=== PATIENT | male | born 1935 | race Caucasian/White ===

== ENCOUNTER 2022-09-24 11:47 | Observation (INO) ==
[2022-09-24] MEDS ORDERED: PHARMACY CONSULT - VANCOMYCIN XX SCH (13:39)
[2022-09-24 14:19] LABS: BASOPHILS # (AUTO) 0.1 X10^3/uL (0.0-0.1); BASOPHILS % (AUTO) 0.7 % (0.2-1.0); EOSINOPHILS # (AUTO) 0.2 x10^3/uL (0.0-0.2); EOSINOPHILS % (AUTO) 2.2 % (0.9-2.9); HEMATOCRIT 37.1 % (42.0-54.0); HEMOGLOBIN 12.5 g/dL (13.5-18.0); LYMPHOCYTES # (AUTO) 1.5 X10^3/uL (1.3-2.9); LYMPHOCYTES % (AUTO) 17.7 % (21.0-51.0); MEAN CORPUSCULAR HEMOGLOBIN 27.3 pg (27.0-34.0); MEAN CORPUSCULAR HGB CONC 33.7 g/dL (33.0-35.0); MEAN PLATELET VOLUME 6.6 fL (7.4-11.0); MONOCYTES # (AUTO) 0.7 x10^3/uL (0.3-0.8); MONOCYTES % (AUTO) 8.5 % (0.0-13.0); NEUTROPHILS # (AUTO) 5.9 x10^3/uL (2.2-4.8); NEUTROPHILS % (AUTO) 70.9 % (42.0-75.0); RED BLOOD COUNT 4.58 X10^6/uL (4.7-6.0); RED CELL DISTRIBUTION WIDTH 14.3 % (11.6-16.5); WHITE BLOOD COUNT 8.3 X10^3/uL (3.6-10.0)
[2022-09-24 14:32] LABS: ALBUMIN 3.3 g/dL (3.4-5.0); CALCIUM 9.1 mg/dL (8.5-10.1); CARBON DIOXIDE 27.8 mmol/L (21-32); COR CA(FOR HYPOALB) 9.7 mg/dL (8.5-10.1); CREATININE 1.9 mg/dL (0.70-1.30)
[2022-09-24] MEDS ORDERED: XOPENEX 1.25 MG/3 ML NEBULE NEB PRN (15:09)
[2022-09-24] MEDS ORDERED: VANCOMYCIN HCL IV SCH (18:00)
[2022-09-24] MEDS ORDERED: NS IV SCH (18:00)
[2022-09-24] MEDS ORDERED: VANCOMYCIN IV ONE (19:33)
[2022-09-24] MEDS ORDERED: TYLENOL 325 MG TAB PO PRN (19:44)
[2022-09-24] MEDS ORDERED: RESTORIL CAP 15 MG PO PRN (19:44)
[2022-09-24] MEDS ORDERED: RESTORIL CAP 15 MG PO ONE (20:06)
[2022-09-24] MEDS ORDERED: TYLENOL 325 MG TAB PO ONE (20:06)
[2022-09-24] MEDS ORDERED: ENTRESTO 24/26 MG TABLET PO ONE (21:15)
[2022-09-24] MEDS ORDERED: LIPITOR TAB 20 MG ONE (21:16)
[2022-09-24] MEDS: ENTRESTO 24/26 MG TABLET PO SCH (21:17)
[2022-09-24] MEDS: LIPITOR TAB 40 MG PO SCH (21:17)
[2022-09-25] MEDS ORDERED: BUTT CREAM (COMPOUND) TOP PRN (05:26)
[2022-09-25 05:30] LABS: BASOPHILS # (AUTO) 0.1 X10^3/uL (0.0-0.1); BASOPHILS % (AUTO) 0.9 % (0.2-1.0); EOSINOPHILS # (AUTO) 0.2 x10^3/uL (0.0-0.2); EOSINOPHILS % (AUTO) 3.7 % (0.9-2.9); HEMATOCRIT 32.2 % (42.0-54.0); HEMOGLOBIN 10.9 g/dL (13.5-18.0); LYMPHOCYTES # (AUTO) 1.3 X10^3/uL (1.3-2.9); LYMPHOCYTES % (AUTO) 21.3 % (21.0-51.0); MEAN CORPUSCULAR HEMOGLOBIN 27.7 pg (27.0-34.0); MEAN CORPUSCULAR HGB CONC 33.7 g/dL (33.0-35.0); MEAN CORPUSCULAR VOLUME 82.1 fL (80.0-100.0); MEAN PLATELET VOLUME 6.8 fL (7.4-11.0); MONOCYTES # (AUTO) 0.6 x10^3/uL (0.3-0.8); MONOCYTES % (AUTO) 9.9 % (0.0-13.0); NEUTROPHILS # (AUTO) 3.8 x10^3/uL (2.2-4.8); NEUTROPHILS % (AUTO) 64.2 % (42.0-75.0); RED BLOOD COUNT 3.93 X10^6/uL (4.7-6.0); RED CELL DISTRIBUTION WIDTH 14.4 % (11.6-16.5)
[2022-09-25 05:47] LABS: ALANINE AMINOTRANSFERASE 24 Units/L (12-78); ALBUMIN 2.6 g/dL (3.4-5.0); ALKALINE PHOSPHATASE 76 Units/L (46-116); ASPARTATE AMINO TRANSFERASE 13 Units/L (15-37); BLOOD UREA NITROGEN 24 mg/dL (7-18); CALCIUM 8.5 mg/dL (8.5-10.1); CARBON DIOXIDE 30.3 mmol/L (21-32); CHLORIDE 108 mmol/L (98-107); COR CA(FOR HYPOALB) 9.6 mg/dL (8.5-10.1); CREATININE 1.79 mg/dL (0.70-1.30); SODIUM 145 mmol/L (136-145); TOTAL PROTEIN 5.7 g/dL (6.4-8.2); eGFR NON BLACK RACES 38 (>60)
[2022-09-25] MEDS: XARELTO PO SCH (08:29)
[2022-09-25] MEDS: ENTRESTO 24/26 MG TABLET PO SCH ×2 (08:29→21:50)
[2022-09-25] MEDS: TOPROL XL PO SCH (08:29)
[2022-09-25] MEDS: RELUGOLIX 120 MG PO SCH (08:34)
[2022-09-25] MEDS: ALOGLIPTIN 12.5 MG PO SCH (08:34)
[2022-09-25] MEDS ORDERED: VANCOMYCIN IV *PREMIX 1 G/200 ML BAG 1 G/200 ML PIGGYBACK IV SCH (09:00)
[2022-09-25] MEDS ORDERED: XARELTO PO SCH (09:00)
--- NOTE | 2022-09-25 10:20 | DR.H&P ---
H&P - History & Physical for Day of: H&P Date: 09/24/22 - Chief Complaint Chief Complaint: BILATERAL LOWER EXTREMITY REDNESS, SWELLING - History of Present Illness History of Present Illness: IS A 86 YEAR OLD PATIENT OF OURS. HE PRE SENTED TO THE OFFICE WITH COMPLAINTS OF SWELLING AND REDNESS OF BILATERAL LOWER EXTREMITIES. ADDITIONALLY, HE COMPLAINS OF PAIN TO HIS INNER RIGHT LEG, NEAR HIS ANKLE AND SHORTNESS OF BREATH. SHORTNESS OF BREATH IS WORSE ON EXERTION. HE REPORTS THAT SYMPTOMS STARTED SEVERAL WEEKS AGO, BUT HAVE PROGRESSIVELY GOTTEN WORSE SINCE FRIDAY. HE DESCRIBES PAIN INTERMITTENT AND THROBBING. HE RATED PAIN A 5/10. EXAMINATION REVEALED 1+ PITTING EDEMA OF BILATERAL LOWER EXTREMITIES. THERE WAS ERYTHEMA NOTED TO BILATERAL LEGS AND TO THE TOP OF THE RIGHT FOOT. PATIENT HAS BEEN FOLLOWED BY , [facility], DUE TO ONGOING DYSPNEA. HE HAD BILATERAL LOWER EXTREMITY VENOUS DOPPLERS ON 07/29/22. IT REVEALED Occlusive DVT seen within the left distal superficial vein/left popliteal vein. LEFT LOWER EXTREMITY VENOUS DOPPLER WAS REPEATED ON 08/08/22. IT REVEALED: Partially occlusive DVT in the mid-distal SFV the with occlusive DVT in the popliteal vein. AN ECHOCARDIOGRAM WAS OBTAINED ON 09/10/22. IT REVEALED AN EJECTION FRACTION OF 56%. PATIENT HAS BEEN ON XARELTO 20MG DAILY DUE TO PRESENCE OF DVT. ADDITIONAL PMH INCLUDES: CAD, CHF, IA, HYPERLIPIDEMIA, HTN, COPD, RENAL DISEASE, DM II, PROSTATE CANCER, TURP. DECISION WAS MADE TO ADMIT PATIENT TO THE HOSPITAL OBSERVATION STATUS FOR FURTHER EVALUATION AND TREATMENT OF BILATERAL LOWER EXTREMITY CELLULITIS, LLE DVT, CHRONIC RENAL FAILURE, CHT, HTN, DM II. ON ARRIVAL TO THE HOSPITAL, HIS VITALS WERE: 98.9-78-20-96%-160/76. LABS WERE OBTAINED. WBC 8.3, RBC 4.58, HGB 12.5, HCT 37.1, PLT COUNT 280, SODIUM 141, POTASSIUM 4.3, CHLORIDE 103, BUN 26, CREATININE 1.90, GLUCOSE 231, AST 15, ALT 32, ALK PHOS 102, BNP 132, TOTAL PROTEIN 7.0, ALBUMIN 3.3. BLOOD CULTURES WERE SET UP. HE WAS STARTED ON VANCOMYCIN 1G IV DAILY, TEMAZEPAM 15MG PO HS, XOPENEX NEBS PRN, OTBS ACHS, HUMULIN R SLIDING SCALE. HIS HOME MEDICATIONS OF TYLENOL, LIPITOR, ALOGLIPTIN, ORGOVYX, TOPROL XL, XARELTO, ENTRESTO WERE RESUMED. OTHERWISE, WE WILL FOLLOW-UP WITH AM LABS AND CONTINUE TO MONITOR. TIME SPENT ON CLINICAL ASSESSMENT, REVIWING LABS AND IMAGING, DECISION MAKING, AND DOCUMENTATION GREATER THAN 75 MINUTES. - Past Medical History Past Medical History: IA, Coronary Artery Disease, Hypertension, Dyslipidemia, Diabetes, Renal Disease, CHF - Past Surgical History Surgical History: Ortho Surgery, TURP - Family History Family Medical History: Cancer - Social History Does patient currently use any type of tobacco product: No Have you used tobacco products in the last 12 months: No Type of Tobacco Use: None Does any household member use tobacco: No Alcohol Use: None Drug Use: None - Medications Home Medications: Penicillins Allergy (Verified 05/15/22 17:58) CONTINUE taking the following medications atorvastatin 40 mg tablet 20 mg PO QHS 09/24/22 [History] furosemide 40 mg tablet 40 mg PO Q OTHER DAY 09/24/22 [History] metoprolol succinate 25 mg tablet,extended release 24 hr 25 mg PO DAILY 09/24/22 [History] - Review of Systems Constitutional: Weakness Eyes: No Symptoms Reported ENT: No Symptoms Reported Respiratory: Shortness of Breath Cardiovascular: No Symptoms Reported Gastrointestinal: No Symptoms Reported Genitourinary: No Symptoms Reported Musculoskeletal: See HPI, Leg Pain (RIGHT LEG PAIN ) Skin: See HPI Neurological: Weakness - Physical Exam Vital Signs: Temperature 98.5 F Pulse Rate [Brachial] 76 Respiratory Rate 18 Blood Pressure [Right Arm] 141/68 Blood Pressure 144/69 O2 Sat by Pulse Oximetry 95 Oriented: Normal Eyes: Normal Ear: Normal Nose: Normal Throat: Normal Respiratory: Diminished Throughout Cardiovascular: Edema (BILATERAL LOWER EXTREMITY 1+ PITTING EDEMA ) : Normal Auscultation: Bowel Sounds: Normal Palpation: Normal Tenderness: Normal Skin: Normal Musculoskeletal: Right, Left, Leg, Swelling, Tender (RIGHT LEG TENDER ) Psychiatric: Normal Mood Description: Calm Affect: Normal Speech Pattern: Clear - Assessment/Plan (1) Bilateral lower leg cellulitis Status: Acute Plan: ADMIT, VANCOMYCIN 1G IV DAILY, TEMAZEPAM 15MG PO HS, XOPENEX NEBS PRN, OTBS ACHS, HUMULIN R SLIDING SCALE. 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 (5) CHF (congestive heart failure) Qualifiers: Heart failure type: unspecified Heart failure chronicity: chronic Qualified Code(s): I50.9 - Heart failure, unspecified Status: Chronic (6) HTN (hypertension) Qualifiers: Hypertension type: primary hypertension Qualified Code(s): I10 - Essential (primary) hypertension Status: Chronic (7) DM II (diabetes mellitus, type II), controlled Qualifiers: 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
[2022-09-25] MEDS: MILK OF MAGNESIA PO SCH (12:36)
[2022-09-25] MEDS: NovoLIN R (or HumuLIN R) SUBCUT PRN ×2 (15:59→22:09)
[2022-09-25] MEDS: SNACK - Diabetic Appropriate PO SCH (20:10)
[2022-09-25] MEDS: COLACE CAP 100 MG PO SCH (21:52)
[2022-09-25] MEDS: LIPITOR TAB 40 MG PO SCH (21:54)
[2022-09-26 05:04] LABS: BASOPHILS % (AUTO) 0.8 % (0.2-1.0); EOSINOPHILS # (AUTO) 0.2 x10^3/uL (0.0-0.2); EOSINOPHILS % (AUTO) 3.6 % (0.9-2.9); HEMATOCRIT 29.9 % (42.0-54.0); HEMOGLOBIN 10.2 g/dL (13.5-18.0); LYMPHOCYTES % (AUTO) 20.2 % (21.0-51.0); MEAN CORPUSCULAR HGB CONC 34.3 g/dL (33.0-35.0); MEAN CORPUSCULAR VOLUME 81.7 fL (80.0-100.0); MEAN PLATELET VOLUME 6.7 fL (7.4-11.0); MONOCYTES # (AUTO) 0.6 x10^3/uL (0.3-0.8); MONOCYTES % (AUTO) 10.8 % (0.0-13.0); NEUTROPHILS # (AUTO) 3.3 x10^3/uL (2.2-4.8); NEUTROPHILS % (AUTO) 64.6 % (42.0-75.0); RED BLOOD COUNT 3.66 X10^6/uL (4.7-6.0); RED CELL DISTRIBUTION WIDTH 14.5 % (11.6-16.5); WHITE BLOOD COUNT 5.1 X10^3/uL (3.6-10.0)
[2022-09-26 05:13] LABS: ALBUMIN 2.5 g/dL (3.4-5.0); CALCIUM 8.2 mg/dL (8.5-10.1); CARBON DIOXIDE 27.6 mmol/L (21-32); COR CA(FOR HYPOALB) 9.4 mg/dL (8.5-10.1); CREATININE 1.52 mg/dL (0.70-1.30); TOTAL PROTEIN 5.5 g/dL (6.4-8.2)
[2022-09-26] MEDS ORDERED: VANCOMYCIN IV *PREMIX 1.25 G/250 ML BAG 1.25 G/250 ML PIGGYBACK IV SCH (09:00)
[2022-09-26] MEDS: TOPROL XL PO SCH (09:38)
[2022-09-26] MEDS: ENTRESTO 24/26 MG TABLET PO SCH ×2 (09:38→20:24)
[2022-09-26] MEDS: XARELTO PO SCH (09:39)
[2022-09-26] MEDS: MILK OF MAGNESIA PO SCH (09:39)
[2022-09-26] MEDS: ALOGLIPTIN 12.5 MG PO SCH (09:45)
[2022-09-26] MEDS: RELUGOLIX 120 MG PO SCH (09:45)
[2022-09-26] MEDS: VANCOMYCIN IV *PREMIX 1 G/200 ML BAG 1 G/200 ML PIGGYBACK IV SCH (20:23)
[2022-09-26] MEDS: LIPITOR TAB 40 MG PO SCH (20:24)
[2022-09-26] MEDS: COLACE CAP 100 MG PO SCH (20:24)
[2022-09-26] MEDS: SNACK - Diabetic Appropriate PO SCH (20:26)
[2022-09-26] MEDS: NovoLIN R (or HumuLIN R) SUBCUT PRN (20:42)
[2022-09-27] MEDS: NovoLIN R (or HumuLIN R) SUBCUT PRN (05:44)
[2022-09-27 05:57] LABS: BASOPHILS % (AUTO) 0.6 % (0.2-1.0); EOSINOPHILS # (AUTO) 0.2 x10^3/uL (0.0-0.2); EOSINOPHILS % (AUTO) 3.4 % (0.9-2.9); HEMATOCRIT 30.2 % (42.0-54.0); HEMOGLOBIN 10.2 g/dL (13.5-18.0); LYMPHOCYTES # (AUTO) 1.4 X10^3/uL (1.3-2.9); LYMPHOCYTES % (AUTO) 23.7 % (21.0-51.0); MEAN CORPUSCULAR HEMOGLOBIN 27.7 pg (27.0-34.0); MEAN CORPUSCULAR HGB CONC 33.9 g/dL (33.0-35.0); MEAN CORPUSCULAR VOLUME 81.7 fL (80.0-100.0); MEAN PLATELET VOLUME 6.9 fL (7.4-11.0); MONOCYTES # (AUTO) 0.6 x10^3/uL (0.3-0.8); MONOCYTES % (AUTO) 10.6 % (0.0-13.0); NEUTROPHILS # (AUTO) 3.6 x10^3/uL (2.2-4.8); NEUTROPHILS % (AUTO) 61.7 % (42.0-75.0); RED BLOOD COUNT 3.69 X10^6/uL (4.7-6.0); RED CELL DISTRIBUTION WIDTH 14.3 % (11.6-16.5); WHITE BLOOD COUNT 5.8 X10^3/uL (3.6-10.0)
[2022-09-27 06:08] LABS: ALBUMIN 2.5 g/dL (3.4-5.0); CALCIUM 8.2 mg/dL (8.5-10.1); CARBON DIOXIDE 25.9 mmol/L (21-32); COR CA(FOR HYPOALB) 9.4 mg/dL (8.5-10.1); CREATININE 1.6 mg/dL (0.70-1.30); TOTAL PROTEIN 5.5 g/dL (6.4-8.2)
[2022-09-27] MEDS: RELUGOLIX 120 MG PO SCH (08:18)
[2022-09-27] MEDS: ALOGLIPTIN 12.5 MG PO SCH (08:19)
[2022-09-27] MEDS: XARELTO PO SCH (08:19)
[2022-09-27] MEDS: ENTRESTO 24/26 MG TABLET PO SCH (08:19)
[2022-09-27] MEDS: TOPROL XL PO SCH (08:19)
[2022-09-27] MEDS: MILK OF MAGNESIA PO SCH (08:21)
[2022-09-27] MEDS ORDERED: PHARMACY COMMENT IV ONE (08:30)
[2022-09-27 09:05] LABS: VANCOMYCIN,TROUGH 16.7 ug/mL (15-20)
[2022-09-27 09:10] LABS: CREATININE 1.63 mg/dL (0.70-1.30)
[2022-09-27] MEDS: VANCOMYCIN IV *PREMIX 1 G/200 ML BAG 1 G/200 ML PIGGYBACK IV SCH (09:47)
[2022-09-27 10:50] VITALS: BP 152/67
== END 2022-09-27 10:30 | disposition home or self-care (01) ==
LOC: MED/SURG
PROVIDERS: ADMIT Internal Medicine; ATTEND Internal Medicine

== ENCOUNTER 2023-05-13 15:43 | Observation (INO) ==
[2023-05-13] MEDS ORDERED: DILAUDID INJ IVP ONE (15:57)
[2023-05-13 15:59] VITALS: BMI 27.3
--- NOTE | 2023-05-13 15:59 | DR.EXTPAIN ---
HPI Time seen Time Seen by Provider: 05/13/23 15:49 PCP Primary Care Physician: feng Complaint/Symptoms Chief Complaint Doctor Comments: 87-year-old male presents for evaluation. Patient complaining of bilateral pain to both lower extremities, with some swelling. Patient was seen here several months ago for lower extremity edema, restarted diuretics then. 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 Patient recently in the hospital up [place], had a procedure to try to help his lower extremity pain, no success. Patient currently on fentanyl patches and oxycodone for pain, without help. Is taking furosemide, s welling not as bad as it has been. Legs feel cold. Patient denies fever, chills, URI symptoms, no bowel or bladder issues. Chief Complaint:: patient c/o of ruiz leg/feet swelling and pain for over a week now. patient states the swelling has came down some but the pain is worse over the past couple days. Nurses notes reviewed Nurses Notes Review: Yes Source History Provided: Patient Mode of arrival Mode of Arrival: Wheelchair Timing Onset of Chief Complaint: 05/06/23 PMH PMH Past Medical History: Yes Past Medical History: CHF, Coronary Artery Disease, Diabetes, Dyslipidemia, Hypertension, [place] and Renal Disease Past Medical History Comment: prostate ca, cancer in spine Past Surgical History: Yes Surgical History: Ortho Surgery and TURP Family History History of Family Medical Conditions: Yes Family Medical History: Cancer Social History Does patient currently use any type of tobacco product: No Have you used tobacco products in the last 12 months: No Type of Tobacco Use: None Does any household member use tobacco: No Alcohol Use: None Do you use any recreational Drugs:: No Lives With: Spouse Lives Where: Home Infectious screening In the last 2 months have you had wt loss of >10#?: NO Have you had fever, night sweats or hemotysis?: No Have you traveled outside the country in the last 6 months?: No Isolation: Standard ROS Review of Systems Constitutional: Weakness Eyes: No Symptoms Reported ENTM: No Symptoms Reported Respiratoy: No Symptoms Reported Cardiovascular: No Symptoms Reported Gastrointestinal/Abdominal: No Symptoms Reported Genitourinary: No Symptoms Reported Neurological: Weakness Musculoskeletal: See HPI Integumentary: No Symptoms Reported All Other Systems: Reviewed and Negative PE Vital Signs Vitals: Vital Signs Temperature 98.0 F Pulse Rate 71 Pulse Rate 71 Pulse Rate 73 Pulse Rate 76 Pulse Rate 74 Pulse Rate 76 Pulse Rate 85 Pulse Rate 79 Pulse Rate 80 Pulse Rate 82 Pulse Rate 80 Respiratory Rate 14 Respiratory Rate 16 Respiratory Rate 12 Respiratory Rate 15 Respiratory Rate 12 Respiratory Rate 13 Respiratory Rate 15 Respiratory Rate 16 Respiratory Rate 20 Respiratory Rate 20 Respiratory Rate 16 Respiratory Rate 16 Blood Pressure 137/67 Blood Pressure 129/73 Blood Pressure 124/66 Blood Pressure 130/55 Blood Pressure 147/71 Blood Pressure 147/71 Blood Pressure 147/71 Blood Pressure 147/71 O2 Sat by Pulse Oximetry 96 O2 Sat by Pulse Oximetry 97 O2 Sat by Pulse Oximetry 95 O2 Sat by Pulse Oximetry 96 O2 Sat by Pulse Oximetry 93 O2 Sat by Pulse Oximetry 92 O2 Sat by Pulse Oximetry 92 O2 Sat by Pulse Oximetry 94 O2 Sat by Pulse Oximetry 96 O2 Sat by Pulse Oximetry 97 O2 Sat by Pulse Oximetry 98 General General Appearance: Alert and In No Apparent Distress Eyes Eye exam: PERRL and EOMI ENT ENT Exam: Mucous Membranes Moist Neck Neck Exam: Normal Inspection Respiratory Respiratory Exam: Normal Lung Sounds Bilat; negative Accessory Muscle Use or Respiratory Distress Cardiovascular Cardiovascular Exam: Regular Rate, Normal Rhythm and Normal Heart Sounds Abdominal Exam Abdominal Exam: Soft; negative Tenderness Neurological Neurological Exam: Alert, Oriented X3 and CN II-XII Intact; negative Motor Sen yung Deficit Skin Skin Exam: Warm and Dry Other Exam Other Exam: Bilateral lower exts - !+ edema of bilateral feet. Skin color normal. Has diminished pulses of both feet. 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 Does not have any significant edema of the extremities. No help with fentanyl patch and oral oxycodone. Work-up initiated. Patient given IV Dilaudid, IV Toradol. + improv ement of pain. Patient worried that his intractable pain will return. Discussed with his attending, Dr. Samuel, will admit for observation. Is attempting to get patient in with a local oncologist, who believes patient may require hospice services in the near future. [facility] Labs Reviewed Laboratory Results Reviewed?: Yes 05/13/23 16:10 05/13/23 16:10 Laboratory: WBC 7.4 X10^3/uL (3.6-10.0) 05/13/23 16:10 RBC 4.55 X10^6/uL (4.7-6.0) L 05/13/23 16:10 Hgb 11.8 g/dL (13.5-18.0) L 05/13/23 16:10 Hct 36.3 % (42.0-54.0) L 05/13/23 16:10 MCV 79.7 fL (80.0-100.0) L 05/13/23 16:10 MCH 26.0 pg (27.0-34.0) L 05/13/23 16:10 MCHC 32.7 g/dL (33.0-35.0) L 05/13/23 16:10 RDW 17.4 % (11.6-16.5) H 05/13/23 16:10 Plt Count 332 X10^3/uL (150.0-450.0) 05/13/23 16:10 MPV 7.1 fL (7.4-11.0) L 05/13/23 16:10 Neut % (Auto) 71.2 % (42.0-75.0) 05/13/23 16:10 Lymph % (Auto) 18.0 % (21.0-51.0) L 05/13/23 16:10 [place] % (Auto) 8.9 % (0.0-13.0) 05/13/23 16:10 Eos % (Auto) 1.0 % (0.9-2.9) 05/13/23 16:10 Baso % (Auto) 0.9 % (0.2-1.0) 05/13/23 16:10 Neut # (Auto) 5.2 x10^3/uL (2.2-4.8) H 05/13/23 16:10 Lymph # (Auto) 1.3 X10^3/uL (1.3-2.9) 05/13/23 16:10 [place] # (Auto) 0.7 x10^3/uL (0.3-0.8) 05/13/23 16:10 Eos # (Auto) 0.1 x10^3/uL (0.0-0.2) 05/13/23 16:10 Baso # (Auto) 0.1 X10^3/uL (0.0-0.1) 05/13/23 16:10 Absolute Nucleated RBC 0.0 /100WBC 05/13/23 16:10 Sodium 136 mmol/L (136-145) 05/13/23 16:10 Corrected Sodium 137 mmol/L (136-145) 05/13/23 16:10 Potassium 4.3 mmol/L (3.5-5.1) 05/13/23 16:10 Chloride 101 mmol/L (98-107) 05/13/23 16:10 Carbon Dioxide 27.4 mmol/L (21-32) 05/13/23 16:10 BUN 27 mg/dL (7-18) H 05/13/23 16:10 Creatinine 1.77 mg/dL (0.70-1.30) H 05/13/23 16:10 Est GFR (MDRD) Af Amer 47 (>60) L 05/13/23 16:10 Est GFR (MDRD) Non-Af 39 (>60) L 05/13/23 16:10 Glucose 159 mg/dL (65-99) H 05/13/23 16:10 Calcium 8.6 mg/dL (8.5-10.1) 05/13/23 16:10 Corrected Calcium 9.3 mg/dL (8.5-10.1) 05/13/23 16:10 Total Bilirubin 0.20 mg/dL (0.2-1.0) 05/13/23 16:10 AST 18 Units/L (15-37) 05/13/23 16:10 ALT 16 Units/L (12-78) 05/13/23 16:10 Alkaline Phosphatase 68 Units/L (46-116) 05/13/23 16:10 Total Protein 6.6 g/dL (6.4-8.2) 05/13/23 16:10 Albumin 3.1 g/dL (3.4-5.0) L 05/13/23 16:10 Globulin 3.5 g/dL (2.5-4.5) 05/13/23 16:10 Albumin/Globulin Ratio 0.9 Ratio (1.1-2.1) L 05/13/23 16:10 Lipase 62 Units/L (16-77) 05/13/23 16:10 Labs overall acceptable Opioid Opioid Risk Tool Age (Valentin box if 16-45): No History of Preadolescent Sexual Abuse: No Total: 0 Total Score Risk Category: Low Risk Copyright: Jean Claude GRIMM predicting aberrant behaviors Discharge Plan Diagnosis Discharge Problem: Intractable pain, Prostate cancer metastatic to bone Discharge Plan Patient Disposition: 09 ADMITTED INPATIENT Condition: Stable Orders to Discharge Patient Discharge Orders: Transfer (Routine); Ordered 05/13/23 Ordered By: Sascha Guevara
[2023-05-13] MEDS ORDERED: DILAUDID INJ ONE (16:01)
[2023-05-13 16:36] LABS: BASOPHILS # (AUTO) 0.1 X10^3/uL (0.0-0.1); BASOPHILS % (AUTO) 0.9 % (0.2-1.0); EOSINOPHILS # (AUTO) 0.1 x10^3/uL (0.0-0.2); HEMATOCRIT 36.3 % (42.0-54.0); HEMOGLOBIN 11.8 g/dL (13.5-18.0); LYMPHOCYTES # (AUTO) 1.3 X10^3/uL (1.3-2.9); MEAN CORPUSCULAR HGB CONC 32.7 g/dL (33.0-35.0); MEAN CORPUSCULAR VOLUME 79.7 fL (80.0-100.0); MEAN PLATELET VOLUME 7.1 fL (7.4-11.0); MONOCYTES # (AUTO) 0.7 x10^3/uL (0.3-0.8); MONOCYTES % (AUTO) 8.9 % (0.0-13.0); NEUTROPHILS # (AUTO) 5.2 x10^3/uL (2.2-4.8); NEUTROPHILS % (AUTO) 71.2 % (42.0-75.0); PLATELET COUNT 332 X10^3/uL (150.0-450.0); RED BLOOD COUNT 4.55 X10^6/uL (4.7-6.0); RED CELL DISTRIBUTION WIDTH 17.4 % (11.6-16.5); WHITE BLOOD COUNT 7.4 X10^3/uL (3.6-10.0)
[2023-05-13 17:23] LABS: ALBUMIN 3.1 g/dL (3.4-5.0); CALCIUM 8.6 mg/dL (8.5-10.1); CARBON DIOXIDE 27.4 mmol/L (21-32); COR CA(FOR HYPOALB) 9.3 mg/dL (8.5-10.1); CREATININE 1.77 mg/dL (0.70-1.30); POTASSIUM 4.3 mmol/L (3.5-5.1); TOTAL PROTEIN 6.6 g/dL (6.4-8.2)
[2023-05-13] MEDS ORDERED: CONSULT PHARMACY - POTASSIUM & MAGNESIUM XX SCH (18:49)
[2023-05-13] MEDS ORDERED: TORADOL 30 MG VIAL IVP PRN (18:49)
[2023-05-13] MEDS ORDERED: LASIX PO SCH (18:49)
[2023-05-13] MEDS: LASIX PO SCH (19:36)
[2023-05-13] MEDS: DILAUDID INJ IVP PRN (20:40)
[2023-05-13] MEDS: LIPITOR TAB 40 MG PO SCH (20:40)
[2023-05-13] MEDS: NEURONTIN CAP 100 MG PO SCH (21:25)
[2023-05-14] MEDS: DILAUDID INJ IVP PRN ×3 (05:00→22:33)
[2023-05-14] MEDS: NEURONTIN CAP 100 MG PO SCH ×5 (05:15→21:03)
[2023-05-14 05:27] LABS: BASOPHILS # (AUTO) 0.1 X10^3/uL (0.0-0.1); EOSINOPHILS # (AUTO) 0.1 x10^3/uL (0.0-0.2); EOSINOPHILS % (AUTO) 1.8 % (0.9-2.9); HEMATOCRIT 34.2 % (42.0-54.0); HEMOGLOBIN 11.2 g/dL (13.5-18.0); LYMPHOCYTES # (AUTO) 1.2 X10^3/uL (1.3-2.9); LYMPHOCYTES % (AUTO) 22.2 % (21.0-51.0); MEAN CORPUSCULAR HEMOGLOBIN 26.3 pg (27.0-34.0); MEAN CORPUSCULAR HGB CONC 32.8 g/dL (33.0-35.0); MEAN CORPUSCULAR VOLUME 80.1 fL (80.0-100.0); MEAN PLATELET VOLUME 7.1 fL (7.4-11.0); MONOCYTES # (AUTO) 0.7 x10^3/uL (0.3-0.8); MONOCYTES % (AUTO) 11.9 % (0.0-13.0); NEUTROPHILS # (AUTO) 3.4 x10^3/uL (2.2-4.8); NEUTROPHILS % (AUTO) 63.1 % (42.0-75.0); PLATELET COUNT 279 X10^3/uL (150.0-450.0); RED BLOOD COUNT 4.27 X10^6/uL (4.7-6.0); WHITE BLOOD COUNT 5.5 X10^3/uL (3.6-10.0)
[2023-05-14 05:45] LABS: ALANINE AMINOTRANSFERASE 16 Units/L (12-78); ALBUMIN 2.7 g/dL (3.4-5.0); ALKALINE PHOSPHATASE 53 Units/L (46-116); ASPARTATE AMINO TRANSFERASE 18 Units/L (15-37); BLOOD UREA NITROGEN 27 mg/dL (7-18); CALCIUM 8.1 mg/dL (8.5-10.1); CARBON DIOXIDE 29.8 mmol/L (21-32); CHLORIDE 104 mmol/L (98-107); COR CA(FOR HYPOALB) 9.1 mg/dL (8.5-10.1); CREATININE 1.75 mg/dL (0.70-1.30); GLUCOSE 72 mg/dL (65-99); POTASSIUM 4.3 mmol/L (3.5-5.1); SODIUM 138 mmol/L (136-145); TOTAL PROTEIN 5.8 g/dL (6.4-8.2); eGFR NON BLACK RACES 39 (>60)
[2023-05-14 06:05] LABS: BILIRUBIN,URINE NEGATIVE (NEGATIVE); BLOOD/HEMOGLOBIN,URINE NEGATIVE (NEGATIVE); GLUCOSE, URINE NEGATIVE (NEGATIVE); KETONES,URINE NEGATIVE (NEGATIVE); LEUKOCYTE ESTERASE ,URINE NEGATIVE (NEGATIVE); NITRITES,URINE NEGATIVE (NEGATIVE); PROTEIN,URINE 1+ (NEGATIVE); UROBILINOGEN,URINE NORMAL (NORMAL)
[2023-05-14 06:14] LABS: APPEARANCE,URINE CLEAR (CLEAR); BACTERIA,URINE NEGATIVE /HPF (NEGATIVE); COLOR,URINE YELLOW (YELLOW); HYALINE CASTS, URINE RARE /LPF (NEGATIVE); RBC,URINE NONE SEEN /HPF (0-3); SQUAMOUS EPITHELIAL CELL,UR RARE /HPF (NEGATIVE)
[2023-05-14] MEDS ORDERED: TORADOL 15 MG VIAL IVP PRN (07:06)
[2023-05-14] MEDS ORDERED: APALUTAMIDE 60 MG PO SCH (09:00)
[2023-05-14] MEDS: DIOVAN TAB 80 MG PO SCH (09:01)
[2023-05-14] MEDS: XARELTO PO SCH (09:01)
[2023-05-14] MEDS: TOPROL XL PO SCH (09:01)
[2023-05-14] MEDS: SOLU-Medrol 40 MG VIAL IVP SCH ×3 (10:36→21:01)
[2023-05-14] MEDS ORDERED: MULTIHANCE INJ VIAL ONE (10:44)
[2023-05-14] MEDS ORDERED: ZOFRAN INJ 4 MG VIAL IVP PRN (11:31)
[2023-05-14] MEDS ORDERED: NovoLIN R (or HumuLIN R) SUBCUT PRN (11:41)
--- NOTE | 2023-05-14 11:43 | DR.H&P ---
H&P - History & Physical for Day of: H&P Date: 05/13/23 - Chief Complaint Chief Complaint: LOWER EXTREMITY AND LOW BACK PAIN - History of Present Illness History of Present Illness: IS A 87 YEAR OLD PATIENT OF OURS. HE HAS A CURRENTMEDICAL HISTORY OF CHF, CAD, DM II, DYSLIPIDEMIA, HTN, RENAL DISEASE, PROSTATE CANCER WITH METS TO THE SPINE. HE PRESENTED TO [facility] ER WITH COMPLAINTS OF BILATERAL LEG AND FEET SWELLING. PATIENT REPORTS CONSTANT PAIN, BUT REPORTS THAT IT HAS WORSENED OVER THE PAST WEEK. PATIENT REPORTS THAT HE WAS RECENTLY IN THE HOSPITAL UP [place] AND HAD A PROCEDURE TO TRY TO RELIEVE SOME OF THE LOWER EXTREMITY PAIN, BUT HAD NO SUCCESS. HE CURRENTLY TAKES OXYCODONE AND USES FENTANYL PATCHES FOR PAIN, BUT HE REPORTS THAT THESE ARE NOT CONTROLLING PAIN WELL. HE ALSO COMPLAINS OF MODERATE PAIN TO THE LOWER BACK. PATIENT RATES BACK AND LEG PAIN A 8/10. HE IS TAKING FUROSEMIDE FOR THE SWELLING. PATIENT DENIES FEVER, CHILLS, URI SYMPTOMS, BOWEL OR BLADDER ISSUES. ON ARRIVAL TO THE HOSPTIAL, HIS VITALS WERE: 98.0-82-16-97%-147/71. LABS WERE OBTAINED. WBC 7.4, RBC 4.55, HGB 11.8, HCT 36.3, PLT COUNT 332, SODIUM 136, POTASSIUM 4.3, CHLORIDE 101, CARBON DIOXIDE 27.4, BUN 27, CREATININE 1.77, GLUCOSE 159, CALCIUM 8.6, TOTAL BILI 0.20, AST 18, ALT 16, ALK PHOS 68, TOTAL PROTEIN 6.6, ALBUMIN 3.1, LIPASE 62. A URINALYSIS WAS OBTAINED AND WAS UNREMARKABLE. IN THE ER, HE WAS GIVEN DILAUDID 1MG IV X 1 AND TORADOL 30MG IV X 1 DOSE. HE WAS ADMITTED TO THE HOSPITAL OBSERVATION STATUS FOR FURTHER EVALUATION AND TREATMENT OF INTRACTABLE PAIN, METASTATIC PROSTATE CANCER. ON ADMISSION, HE WAS STARTED ON NORMAL SALINE AT 75 ML/HR, SOLU-MEDROL 80MG IV Q8H, DILAUDID 1MG IV Q4H PRN, TORADOL 15MG IV Q6H PRN, ZOFRAN 4MG IV Q6H PRN. HIS HOME MEDICATIONS OF LIPITOR, FENTANYL PATCH, LASIX, NEURONTIN, ERLEADA, ALOGLIPTIN, ORGOVYX, TOPROL XL, XARELTO, AND DIOVAN WERE RESUMED. WE PLAN TO OBTAIN THORACIC AND LUMBAR SPINE MRIs WITH CONTRAST TO FURTHER EVALUATE METS OF THE SPINE. OTHERWISE, WE WILL FOLLOW UP WITH AM LABS AND CONTINUE TO MONITOR. TIME SPENT ON CLINICAL ASSESSMENT, REVIEWING LABS AND IMAGING, DECISION MAKING, AND DOCUMENTATION GREATER THAN 75 MINUTES. - Past Medical History Past Medical History: ND, Coronary Artery Disease, Hypertension, Dyslipidemia, Diabetes, Renal Disease, CHF - Past Surgical History Surgical History: Ortho Surgery, TURP - Family History Family Medical History: Cancer - Social History Does patient currently use any type of tobacco product: No Have you used tobacco products in the last 12 months: No Type of Tobacco Use: None Does any household member use tobacco: No Alcohol Use: Occasionally - Review of Systems Constitutional: Weakness Eyes: No Symptoms Reported ENT: No Symptoms Reported Respiratory: No Symptoms Reported Cardiovascular: No Symptoms Reported Gastrointestinal: No Symptoms Reported Genitourinary: No Symptoms Reported Musculoskeletal: Back Pain, Leg Pain (BILATERAL ) Skin: No Symptoms Reported Neurological: Weakness - Physical Exam Vital Signs: Vital Signs Temperature 97.0 F Temperature 98.6 F Pulse Rate [Left Radial] 70 Pulse Rate [Left Radial] 56 Respiratory Rate 20 Respiratory Rate 20 Respiratory Rate 18 Respiratory Rate 18 Blood Pressure [Left Arm] 145/83 Blood Pressure [Left Arm] 153/71 O2 Sat by Pulse Oximetry 98 O2 Sat by Pulse Oximetry 98 Oriented: Normal Eyes: Normal Ear: Normal Nose: Normal Throat: Normal Respiratory: Diminished Throughout Cardiovascular: Normal : Normal Auscultation: Bowel Sounds: Normal Palpation: Normal Tenderness: Normal Skin: Normal Musculoskeletal: Right, Left, Leg, Back:Thoracic, Back:Lumbar, Swelling, Tender Psychiatric: Normal Mood Description: Calm Affect: Normal Speech Pattern: Clear - Assessment/Plan (1) Intractable pain Status: Acute Plan: ADMIT, NORMAL SALINE AT 50 ML/HR, SOLU-MEDROL 80MG IV Q8H, DILAUDID 1MG IV Q4H PRN, TORADOL 15MG IV Q6H PRN, ZOFRAN 4MG IV Q6H PRN. HIS HOME MEDICATIONS OF LIPITOR, FENTANYL PATCH, LASIX, NEURONTIN, ERLEADA, ALOGLIPTIN, ORGOVYX, TOPROL XL, XARELTO, AND DIOVAN WERE RESUMED. WE PLAN TO OBTAIN THORACIC AND LUMBAR SPINE MRIs WITH CONTRAST TO FURTHER EVALUATE METS OF THE SPINE. (2) Edema of both lower extremities Status: Acute (3) Prostate cancer metastatic to bone Status: Acute (4) Dyslipidemia Status: Acute Plan: RESUME LIPITOR (5) CHF (congestive heart failure) Qualifiers: Heart failure type: unspecified Heart failure chronicity: chronic Qualified Code(s): I50.9 - Heart failure, unspecified Status: Chronic Plan: RESUME LASIX (6) HTN (hypertension) Qualifiers: Hypertension type: primary hypertension Status: Chronic Plan: RESUME TOPROL AND DIOVAN (7) DM II (diabetes mellitus, type II), controlled Qualifiers: Diabetes mellitus intermediate manager insulin use: with snf use Diabetes mellitus complication status: with hyperglycemia Qualified Code(s): E11.65 - Type 2 diabetes mellitus with hyperglycemia; Z79.4 - petroleum terminal plant operator (current) use of insulin Status: Chronic Plan: OTBS ACHS, HUMULIN R SLIDING SCALE (8) Chronic renal failure Qualifiers: Chronic kidney disease stage: unspecified stage Qualified Code(s): N18.9 - Chronic kidney disease, unspecified Status: Chronic - Allergies Allergies/Adverse Reactions: Allergies Allergy/AdvReac Type Severity Reaction Status Date / Time Penicillins Allergy Verified 05/15/22 17:58 - Medications Home Medications: Home Medications Medication Instructions Recorded Confirmed alogliptin 12.5 mg tablet 12.5 mg PO DAILY 09/10/22 05/13/23 relugolix 120 mg tablet (Orgovyx) 120 mg PO DAILY 09/10/22 05/13/23 atorvastatin 40 mg tablet 20 mg PO QHS 09/24/22 05/13/23 furosemide 40 mg tablet 40 mg PO Q OTHER DAY 09/24/22 05/13/23 metoprolol succinate 25 mg 25 mg PO DAILY 09/24/22 05/13/23 tablet,extended release 24 hr apalutamide 60 mg tablet (Erleada) 60 mg PO DAILY 05/13/23 05/13/23 fentanyl 25 mcg/hr transdermal 1 patch Q3D 05/13/23 05/13/23 patch gabapentin 100 mg capsule 100 mg PO TID 05/13/23 05/13/23 ondansetron 4 mg disintegrating 4 mg PO Q8H PRN 05/13/23 05/13/23 tablet oxycodone-acetaminophen 5 mg-325 1 tab PO TID PRN 05/13/23 05/13/23 mg tablet rivaroxaban 20 mg tablet 20 mg PO DAILY 05/13/23 05/13/23 valsartan 80 mg tablet 80 mg PO QDAY 05/13/23 05/13/23
[2023-05-14] MEDS: NS 1,000 ML IV 1,000 ML IV SCH ×2 (12:46→14:39)
--- NOTE | 2023-05-14 14:02 | MRI ---
EXAM:MRI lumbar spine without and with IV contrastHISTORY:intractable pain, metastatic disease -COMPARISON:None.TECHNIQUE:Multiplanar multisequence MRI of the lumbar spine was obtained without and with IV contrast. 19 cc MultiHance IV contrast.FINDINGS:The conus terminates at the L1 level. There is mild scoliosis. There is likely mild cortical expansion of L3 associated with metastatic disease. There appears to be sclerotic metastasis within L3 vertebral body and posterior elements. There is likely mild soft tissue extension of tumor in the paraspinous region and there is extension of soft tissue mass into the left side of the anterior epidural space and left lateral recess at L3.Other enhancing metastases are suspected in the S1 and L4 vertebrae. Sclerotic metastasis is suspected in the superior aspect of the L1 vertebral body. Schmorl's node is suspected in the superior endplate of L2 other enhancing metastases are suspected within the posterior aspect of the L2 vertebral body.Probable enhancing metastases are present within both iliac bones. No evidence of intrathecal metastasis is seen. Probable bone metastasis is present in the lower sacral region, also.T12 -- L1: No significant stenosis.L1 -- L2: Posterior element hypertrophy and broad central disc bulge cause moderate neural foraminal narrowing with prominent thecal sac effacement and near compression. Prominent right neural foraminal stenosis is seen with possible compression of the right L2 nerve root.L2 -- L3: Moderate posterior element hypertrophy is seen with prominent central disc bulge. Spread of tumor is seen in the anterior epidural space on the left. Prominent thecal sac effacement and near compression is seen. Moderate lateral recess stenosis is suspected with mild neural foraminal narrowing.L3 -- L4: Prior right hemilaminectomy. Mild facet hypertrophy is seen. There is expansion of the posterior cortex of L3 and likely broad central disc bulge. Moderate bilateral neural foraminal narrowing is seen. There is prominent thecal sac effacement and prominent bilateral lateral recess stenosis. There is probable compression of the bilateral L4 nerve roots.L4 -- L5: Likely prior right hemilaminectomy. Facet hypertrophy is seen. Posterior osteophytes and central disc osteophyte complex are seen causing mild thecal sac effacement. There is mild right-sided and prominent left-sided lateral recess stenosis. There may be compression of the left L5 nerve root. Moderate right neural foraminal narrowing is seen with prominent left neural foraminal narrowing. There may be compression of the exiting left L4 nerve root.L5 -- S1:Mild facet hypertrophy is seen with posterior osteophytes. Moderate right-sided and prominent left-sided neural foraminal narrowing is seen. There is probable compression of the left L5 nerve root. Moderate left lateral recess stenosis is seen.IMPRESSION:Diffuse bony metastases are seen, greatest at L3. There is soft tissue extension of tumor into the paraspinous soft tissues and anterior epidural space at L3. Prominent thecal sac effacement and prominent bilateral lateral recess stenosis is seen at L3-4. Prominent thecal sac effacement and near compression is seen at L2-3, also.Disc bulge and posterior element hypertrophy cause prominent thecal sac effacement and near compression at L1-2.THIS IS AN ELECTRONICALLY VERIFIED FINAL [id number] 1:59 PM - Electronically signed by Rudy Raza MD
[2023-05-14] MEDS: RELUGOLIX 120 MG PO SCH (15:02)
[2023-05-14] MEDS: APALUTAMIDE 60 MG PO SCH (15:03)
[2023-05-14] MEDS: ALOGLIPTIN 12.5 MG PO SCH (15:03)
[2023-05-14] MEDS: SNACK - Diabetic Appropriate PO SCH (20:56)
[2023-05-14] MEDS: LIPITOR TAB 40 MG PO SCH (20:58)
[2023-05-15] MEDS: NS 1,000 ML IV 1,000 ML IV SCH ×2 (04:56→16:11)
[2023-05-15] MEDS: NEURONTIN CAP 100 MG PO SCH ×3 (05:30→21:08)
[2023-05-15] MEDS: SOLU-Medrol 40 MG VIAL IVP SCH ×3 (05:30→21:09)
[2023-05-15 06:12] LABS: HEMATOCRIT 33.1 % (42.0-54.0)
[2023-05-15 06:23] LABS: BASOPHILS % (AUTO) 0.2 % (0.2-1.0); EOSINOPHILS % (AUTO) 0.1 % (0.9-2.9); HEMOGLOBIN 10.9 g/dL (13.5-18.0); LYMPHOCYTES # (AUTO) 1.5 X10^3/uL (1.3-2.9); LYMPHOCYTES % (AUTO) 13.1 % (21.0-51.0); MEAN CORPUSCULAR HEMOGLOBIN 26.3 pg (27.0-34.0); MEAN CORPUSCULAR HGB CONC 32.9 g/dL (33.0-35.0); MONOCYTES # (AUTO) 0.4 x10^3/uL (0.3-0.8); MONOCYTES % (AUTO) 4.1 % (0.0-13.0); NEUTROPHILS # (AUTO) 9.2 x10^3/uL (2.2-4.8); NEUTROPHILS % (AUTO) 82.5 % (42.0-75.0); PLATELET COUNT 325 X10^3/uL (150.0-450.0); RED BLOOD COUNT 4.14 X10^6/uL (4.7-6.0); RED CELL DISTRIBUTION WIDTH 17.1 % (11.6-16.5); WHITE BLOOD COUNT 11.1 X10^3/uL (3.6-10.0)
[2023-05-15 06:31] LABS: ALBUMIN 2.7 g/dL (3.4-5.0); CALCIUM 7.7 mg/dL (8.5-10.1); CARBON DIOXIDE 25.5 mmol/L (21-32); COR CA(FOR HYPOALB) 8.7 mg/dL (8.5-10.1); CREATININE 1.92 mg/dL (0.70-1.30); POTASSIUM 5.1 mmol/L (3.5-5.1); TOTAL PROTEIN 5.9 g/dL (6.4-8.2)
--- NOTE | 2023-05-15 08:13 | MRI ---
EXAM:MRI thoracic spine without and with IV contrastHISTORY:intractable pain, metastatic disease -COMPARISON:None.TECHNIQUE:MRI of the thoracic spine without and with IV contrast is performed using standard sequences in multiple planes. 20 cc MultiHance IV contrast.FINDINGS:Bone metastasis is seen in the T9 vertebral body. It has mild enhancement following IV contrast administration. In the anterior left side of the T11 vertebral body there is a T1 hypointense and T2 hyperintense focus that has mild enhancement. It may be a small metastasis. A small sclerotic metastasis is suspected in the T8 vertebral body. In the inferior aspect of the T2 vertebral body there is another T1 hypointense focus. It has no contrast enhancement and has mild increased T2 signal. It is uncertain if this is from metastatic disease or degenerative endplate changes.No thoracic compression fracture or subluxation is seen. Significant thoracic stenosis is seen. There is no evidence of a disc herniation. There is an abnormal appearing cyst in the superior pole of the right kidney. It has an enhancing thick wall. It measures approximately 2.2 cm in diameter. Consider further evaluation with renal ultrasound and/or MRI. No abnormal cord signal is seen. No abnormal cord enhancement is seen.IMPRESSION:Several bone metastases are suspected. The largest metastasis is seen in the T9 vertebral body. No compression fracture is seen. No soft tissue extension of tumor is seen in the thoracic region.THIS IS AN ELECTRONICALLY VERIFIED FINAL [id number]/2023 8:09 AM - Electronically signed by Rudy Raza MD
[2023-05-15] MEDS: ALOGLIPTIN 12.5 MG PO SCH (08:40)
[2023-05-15] MEDS: XARELTO PO SCH (08:40)
[2023-05-15] MEDS: TOPROL XL PO SCH (08:40)
[2023-05-15] MEDS: RELUGOLIX 120 MG PO SCH (08:40)
[2023-05-15] MEDS: DILAUDID INJ IVP PRN ×3 (08:40→21:10)
[2023-05-15] MEDS: DIOVAN TAB 80 MG PO SCH (08:40)
[2023-05-15] MEDS: APALUTAMIDE 60 MG PO SCH (08:40)
[2023-05-15] MEDS ORDERED: RESTORIL CAP 15 MG PO PRN (11:52)
[2023-05-15] MEDS ORDERED: DULCOLAX TAB EC 5 MG PO ONE (14:37)
[2023-05-15] MEDS: DULCOLAX TAB EC 5 MG PO ONE ×2 (14:39→15:03)
--- NOTE | 2023-05-15 18:53 | PCM.PROG ---
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 HE PRESENTED TO [facility] ER WITH COMPLAINTS OF BILATERAL LEG AND FEET SWELLING. PATIENT REPORTS CONSTANT PAIN, BUT REPORTS THAT IT HAS WORSENED OVER THE PAST WEEK. PT HAS REQUIRED ASSISTANCE FOR TRANSFER. PT HAD MRI OF SPINE REVEALING MULTIPLE METASTATIC BONE LESIONS. PT REPORTS HIS PAIN WAS MORE CONTROLLED LAST PM AND HE HAS CO CONSTIPATION. HE CURRENTLY TAKES OXYCODONE AND USES FENTANYL PATCHES FOR PAIN, BUT HE REPORTS THAT THESE ARE NOT CONTROLLING PAIN WELL COP BREAKER. WE DISCUSSED WITH PATIENT POSSIBLE HOME HEALTH, CHRONIC PAIN CONTROL WITH PCP AND LOCAL ONCOLOGY EVALUATION. Past Medical Family Social History Allergies: Allergies Penicillins Allergy (Verified 05/15/22 17:58) Vital Signs and I&O's Vital Signs: Vital Signs Temperature 98.6 F Temperature 98.6 F Pulse Rate [Left Radial] 68 Pulse Rate [Left Radial] 68 Respiratory Rate 18 Respiratory Rate 18 Respiratory Rate 18 Blood Pressure [Left Arm] 159/75 Blood Pressure [Left Arm] 159/75 O2 Sat by Pulse Oximetry 97 O2 Sat by Pulse Oximetry 97 Intake and Output: Intake & Output 05/13/23 05/14/23 05/15/23 05/16/23 11:59 11:59 11:59 11:59 Intake Total 560 / 560 933 / 933 120 / 120 Output Total 440 / 440 600 / 600 300 / 300 Balance 120 / 120 333 / 333 -180 / -180 Physical Exam Oriented: Normal Eyes: Normal Ear: Normal Nose: Normal Throat: Normal Cardiovascular: Normal : Normal Auscultation: Bowel Sounds: Normal Tenderness: Normal Skin: Normal Musculoskeletal: Right, Left, Leg, Back:Thoracic, Back:Lumbar, Swelling and Tender Psychiatric: Normal and Depression Mood Description: Calm Affect: Depressed and Normal Speech Pattern: Clear and Appropriate Laboratory and Diagnostics 05/15/23 05:36 05/15/23 05:36 Labs: Laboratory WBC 11.1 X10^3/uL (3.6-10.0) H 05/15/23 05:36 RBC 4.14 X10^6/uL (4.7-6.0) L 05/15/23 05:36 Hgb 10.9 g/dL (13.5-18.0) L 05/15/23 05:36 Hct 33.1 % (42.0-54.0) L 05/15/23 05:36 MCV 80.0 fL (80.0-100.0) 05/15/23 05:36 MCH 26.3 pg (27.0-34.0) L 05/15/23 05:36 MCHC 32.9 g/dL (33.0-35.0) L 05/15/23 05:36 RDW 17.1 % (11.6-16.5) H 05/15/23 05:36 Plt Count 325 X10^3/uL (150.0-450.0) 05/15/23 05:36 MPV 7.0 fL (7.4-11.0) L 05/15/23 05:36 Neut % (Auto) 82.5 % (42.0-75.0) H 05/15/23 05:36 Lymph % (Auto) 13.1 % (21.0-51.0) L 05/15/23 05:36 Bland % (Auto) 4.1 % (0.0-13.0) 05/15/23 05:36 Eos % (Auto) 0.1 % (0.9-2.9) L 05/15/23 05:36 Baso % (Auto) 0.2 % (0.2-1.0) 05/15/23 05:36 Neut # (Auto) 9.2 x10^3/uL (2.2-4.8) H 05/15/23 05:36 Lymph # (Auto) 1.5 X10^3/uL (1.3-2.9) 05/15/23 05:36 Bland # (Auto) 0.4 x10^3/uL (0.3-0.8) 05/15/23 05:36 Eos # (Auto) 0.0 x10^3/uL (0.0-0.2) 05/15/23 05:36 Baso # (Auto) 0.0 X10^3/uL (0.0-0.1) 05/15/23 05:36 Absolute Nucleated RBC 0.0 /100WBC 05/15/23 05:36 Sodium 136 mmol/L (136-145) 05/15/23 05:36 Corrected Sodium 139 mmol/L (136-145) 05/15/23 05:36 Potassium 5.1 mmol/L (3.5-5.1) 05/15/23 05:36 Chloride 104 mmol/L (98-107) 05/15/23 05:36 Carbon Dioxide 25.5 mmol/L (21-32) 05/15/23 05:36 BUN 37 mg/dL (7-18) H 05/15/23 05:36 Creatinine 1.92 mg/dL (0.70-1.30) H 05/15/23 05:36 Est GFR (MDRD) Af Amer 43 (>60) L 05/15/23 05:36 Est GFR (MDRD) Non-Af 35 (>60) L 05/15/23 05:36 Glucose 209 mg/dL (65-99) H 05/15/23 05:36 Calcium 7.7 mg/dL (8.5-10.1) L 05/15/23 05:36 Corrected Calcium 8.7 mg/dL (8.5-10.1) 05/15/23 05:36 Total Bilirubin 0.20 mg/dL (0.2-1.0) 05/15/23 05:36 AST 30 Units/L (15-37) 05/15/23 05:36 ALT 27 Units/L (12-78) 05/15/23 05:36 Alkaline Phosphatase 66 Units/L (46-116) 05/15/23 05:36 Total Protein 5.9 g/dL (6.4-8.2) L 05/15/23 05:36 Albumin 2.7 g/dL (3.4-5.0) L 05/15/23 05:36 Globulin 3.2 g/dL (2.5-4.5) 05/15/23 05:36 Albumin/Globulin Ratio 0.8 Ratio (1.1-2.1) L 05/15/23 05:36 Lipase 62 Units/L (16-77) 05/13/23 16:10 Specimen Type Clean catch urine 05/14/23 05:30 Urine Color Yellow (YELLOW) 05/14/23 05:30 Urine Appearance Clear (CLEAR) 05/14/23 05:30 Urine pH 5.0 (5.0 - 8.0) 05/14/23 05:30 Ur Specific [place] 1.020 (1.000-1.030) 05/14/23 05:30 Urine Protein 1+ (NEGATIVE) 05/14/23 05:30 Urine Glucose (UA) Negative (NEGATIVE) 05/14/23 05:30 Urine Ketones Negative (NEGATIVE) 05/14/23 05:30 Urine Blood Negative (NEGATIVE) 05/14/23 05:30 Urine Nitrite Negative (NEGATIVE) 05/14/23 05:30 Urine Bilirubin Negative (NEGATIVE) 05/14/23 05:30 Urine Urobilinogen Normal (NORMAL) 05/14/23 05:30 Ur Leukocyte Esterase Negative (NEGATIVE) 05/14/23 05:30 Urine RBC None seen /HPF (0-3) 05/14/23 05:30 Urine WBC None seen /HPF (0-5) 05/14/23 05:30 Ur Squamous Epith Cells Rare /HPF (NEGATIVE) 05/14/23 05:30 Urine Bacteria Negative /HPF (NEGATIVE) 05/14/23 05:30 Hyaline Casts Rare /LPF (NEGATIVE) 05/14/23 05:30 Ur Culture Indicated? No/not indicated 05/14/23 05:30 Plan (1) Intractable pain: Status: Acute Plan: ADMIT, NORMAL SALINE AT 50 ML/HR, SOLU-MEDROL 80MG IV Q8H, DILAUDID 1MG IV Q4H PRN, TORADOL 15MG IV Q6H PRN, ZOFRAN 4MG IV Q6H PRN. HIS HOME MEDICATIONS OF LIPITOR, FENTANYL PATCH, LASIX, NEURONTIN, ERLEADA, ALOGLIPTIN, ORGOVYX, TOPROL XL, XARELTO, AND DIOVAN WERE RESUMED. WE PLAN TO OBTAIN THORACIC AND LUMBAR SPINE MRIs WITH CONTRAST TO FURTHER EVALUATE METS OF THE SPINE. 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
[2023-05-15] MEDS ORDERED: COLACE CAP 100 MG PO SCH (21:00)
[2023-05-15] MEDS: LIPITOR TAB 40 MG PO SCH (21:08)
[2023-05-15] MEDS: LASIX PO SCH (21:09)
[2023-05-15] MEDS: SNACK - Diabetic Appropriate PO SCH (21:10)
[2023-05-16 04:59] VITALS: O2SAT 95
[2023-05-16] MEDS: NS 1,000 ML IV 1,000 ML IV SCH (05:00)
[2023-05-16] MEDS: SOLU-Medrol 40 MG VIAL IVP SCH (05:41)
[2023-05-16] MEDS: NEURONTIN CAP 100 MG PO SCH (05:42)
[2023-05-16] MEDS: DILAUDID INJ IVP PRN ×2 (06:35→10:00)
[2023-05-16] MEDS ORDERED: DULCOLAX SUPPOSITORY 10 MG RECTAL ONE ×2 (08:00→08:22)
[2023-05-16 08:06] VITALS: BP 171/96; PULSE 68; RESP 18; TEMP 98.3
[2023-05-16 08:27] LABS: BASOPHILS # (AUTO) 0.1 X10^3/uL (0.0-0.1); BASOPHILS % (AUTO) 0.4 % (0.2-1.0); EOSINOPHILS # (AUTO) 0.1 x10^3/uL (0.0-0.2); EOSINOPHILS % (AUTO) 0.3 % (0.9-2.9); LYMPHOCYTES # (AUTO) 1.6 X10^3/uL (1.3-2.9); LYMPHOCYTES % (AUTO) 9.6 % (21.0-51.0); MEAN CORPUSCULAR HGB CONC 32.4 g/dL (33.0-35.0); MEAN CORPUSCULAR VOLUME 80.2 fL (80.0-100.0); MEAN PLATELET VOLUME 6.8 fL (7.4-11.0); MONOCYTES # (AUTO) 0.9 x10^3/uL (0.3-0.8); MONOCYTES % (AUTO) 5.4 % (0.0-13.0); NEUTROPHILS # (AUTO) 13.7 x10^3/uL (2.2-4.8); NEUTROPHILS % (AUTO) 84.3 % (42.0-75.0); PLATELET COUNT 389 X10^3/uL (150.0-450.0); RED BLOOD COUNT 4.61 X10^6/uL (4.7-6.0); RED CELL DISTRIBUTION WIDTH 17.4 % (11.6-16.5); WHITE BLOOD COUNT 16.2 X10^3/uL (3.6-10.0)
[2023-05-16 08:39] LABS: ALANINE AMINOTRANSFERASE 25 Units/L (12-78); ALBUMIN 3.4 g/dL (3.4-5.0); ALKALINE PHOSPHATASE 73 Units/L (46-116); ASPARTATE AMINO TRANSFERASE 23 Units/L (15-37); BLOOD UREA NITROGEN 39 mg/dL (7-18); CALCIUM 8.1 mg/dL (8.5-10.1); CARBON DIOXIDE 26.5 mmol/L (21-32); CHLORIDE 103 mmol/L (98-107); COR NA(FOR HYPERGLY) 141 mmol/L (136-145); GLUCOSE 172 mg/dL (65-99); POTASSIUM 4.3 mmol/L (3.5-5.1); SODIUM 139 mmol/L (136-145); TOTAL PROTEIN 7.2 g/dL (6.4-8.2); eGFR NON BLACK RACES 41 (>60)
[2023-05-16] MEDS: DIOVAN TAB 80 MG PO SCH (09:04)
[2023-05-16] MEDS: XARELTO PO SCH (09:04)
[2023-05-16] MEDS: RELUGOLIX 120 MG PO SCH (09:09)
[2023-05-16] MEDS: TOPROL XL PO SCH (09:10)
[2023-05-16] MEDS: ALOGLIPTIN 12.5 MG PO SCH (09:11)
[2023-05-16] MEDS: APALUTAMIDE 60 MG PO SCH (09:12)
--- NOTE | 2023-05-16 11:42 | RAD ---
EXAM:KUBHISTORY:constipation, abd distention -COMPARISON:None.FINDINGS:Rectum is distended with soft fecal material. It measures 7.0 cm in diameter. There is mild left-sided constipation with more moderate constipation in the ascending colon. There is mild gaseous distention of the distal ileum likely due to the constipation.IMPRESSION:Moderate constipation is seen in the rectum and ascending colon with more mild constipation elsewhere.THIS IS AN ELECTRONICALLY VERIFIED FINAL [id number]/2023 11:38 AM - Electronically signed by Rudy Raza MD
== END 2023-05-16 12:30 | disposition home health service (06) ==
LOC: MED/SURG 15:43 → ER 15:43 → MED/SURG 18:22
PROVIDERS: ADMIT Internal Medicine; ATTEND Internal Medicine
DX: M79.605 Pain in left leg; M54.89 Other dorsalgia; N18.9 Chronic kidney disease, unspecified; R26.89 Other abnormalities of gait and mobility; I25.10 Atherosclerotic heart disease of native coronary artery without angina pectoris; R60.0 Localized edema; I50.9 Heart failure, unspecified; Z79.4 Long term (current) use of insulin; C79.51 Secondary malignant neoplasm of bone; C61 Malignant neoplasm of prostate; E78.5 Hyperlipidemia, unspecified; I10 Essential (primary) hypertension; M79.604 Pain in right leg; K59.09 Other constipation; E11.65 Type 2 diabetes mellitus with hyperglycemia